=== PATIENT | male | born 1950 | race African-American/Black ===

== ENCOUNTER 2018-09-13 03:49 | Inpatient (IN) | payer OTHER ==
[~2018-09-13] VITALS: Ht 172.7 cm; Wt 99.1 kg
[2018-09-13] VITALS (14 sets, daily range): BP systolic 148–195; BP diastolic 64–93
[2018-09-13 04:22] LABS: CALCIUM 9.1 mg/dL (8.5-10.1); CREATININE 1.1 mg/dL (0.7-1.3); POTASSIUM 3.6 mmol/L (3.5-5.1)
[2018-09-13 04:26] LABS: ABSOLUTE NEUTROPHILS 2.7 thou/uL (1.4-8.2); BASOPHILS 0.9 % (0.0-2.0); EOSINOPHILS 2.7 % (0.0-3.0); HEMATOCRIT 32.7 % (42.0-52.0); HEMOGLOBIN 11.1 gm/dL (14.0-18.0); MCH 25.4 pg (26.0-34.0); MCHC 33.9 g/dL (28.0-37.0); MCV 74.9 fL (80.0-100.0); MONOCYTES 9.9 % (1.0-8.0); PLATELET COUNT 170 thou/uL (150-400); POLYS 55.5 % (36.0-66.0); RBC 4.36 mil/uL (4.50-6.00); RDW 15.5 % (10.5-14.5); WBC 4.9 thou/uL (4.0-11.0)
[2018-09-13 04:30] LABS: ALBUMIN 3.1 g/dL (3.4-5.0); TOTAL BILIRUBIN 0.5 mg/dL (<0.1-1.0); TOTAL PROTEIN 7.3 g/dL (6.4-8.2); TROPONIN-I 0.29 ng/mL (<0.06)
[2018-09-13 05:06] LABS: PROTIME 10.7 Seconds (9.3-11.4)
[2018-09-13] MEDS ORDERED: VICTOZA0.6 MG/0.1 SUBQ (05:24)
[2018-09-13] MEDS ORDERED: NORVASC10 MG PO (05:25)
[2018-09-13] MEDS ORDERED: COREG6.25 MG PO (05:25)
[2018-09-13] MEDS ORDERED: ATORVASTATIN CA40 MG PO (05:25)
[2018-09-13] MEDS ORDERED: BENTYL 20 MG TA20 M1 PO (05:26)
[2018-09-13] MEDS ORDERED: PEPCID20 MG PO (05:26)
[2018-09-13] MEDS ORDERED: COZAAR 25 MG TA25 M2 PO (05:27)
[2018-09-13] MEDS ORDERED: HYDRALAZINE 10M10 MG PO (05:27)
[2018-09-13] MEDS ORDERED: FLOMAX0.4 MG PO (05:28)
[2018-09-13] MEDS ORDERED: OMEPRAZOLE40 MG PO (05:28)
[2018-09-13] MEDS ORDERED: KLOR-CON 1010 MEQ PO (05:29)
[2018-09-13] MEDS ORDERED: NORTRIPTYLINE H25 M3 PO (05:30)
[2018-09-13] MEDS ORDERED: NEURONTIN 300300 M1 PO (05:31)
[2018-09-13 07:08] LABS: CHOLESTEROL 195 mg/dL (<200); HDL CHOLESTEROL 50 mg/dL (>40); LDL CHOLESTEROL 103 mg/dL (<100); TC:HDL 3.9 Ratio (Not establshd); TRIGLYCERIDE 214 mg/dL (<150); VLDL 43 mg/dL (<40)
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
[2018-09-13 11:24] LABS: TSH 2.847 uIU/mL (0.358-3.740)
--- NOTE | 2018-09-13 22:09 | EKG ---
[address] [address] ELECTROCARDIOGRAM REPORT Name: VILMA GELLER Room #: 212-P ADM IN M.R.#: [id number] Admission: 09/13/18 Attend Phys: Heriberto Lorenzo MD Discharge: Date of : 50 Report #: [id number] THIS REPORT FOR: //name// [facility] ED Test Date: 2018-09-13 Test Time: 03:57:50 Pat Name: VILMA GELLER Department: Room: 212 Gender: M Consultant: ariel : 1950 Requested By: Lilli Cruz Order Number: [id number] MD: Sumit Inman Measurements Intervals [place] Rate: 75 P: -49 WV: 210 QRS: -58 QRSD: 136 T: 132 QT: 428 QTc: 479 Interpretive Statements Sinus or ectopic atrial rhythm LVH with IVCD, LAD and secondary repol abnrm Anterior ST elevation, probably due to LVH No previous ECG available for comparison Electronically Signed On 09-13-2018 22:09:38 CHAMFERING MACHINE OPERATOR by Sumit Inman [email or web address] <ELECTRONICALLY SIGNED> By: Sumit Inman MD 09/13/18 1189 [id number] Sumit Inman MD /EPI
[2018-09-14 00:10] LABS: GLYCOHEMOGLOBIN (HGB A1C) 7.9 % (4.8-5.6)
[2018-09-14 00:23] VITALS: BP 162/72
[2018-09-14 04:18] LABS: HEMATOCRIT 31.3 % (42.0-52.0); HEMOGLOBIN 10.5 gm/dL (14.0-18.0); MCH 25.4 pg (26.0-34.0); MCHC 33.5 g/dL (28.0-37.0); MCV 75.9 fL (80.0-100.0); RBC 4.13 mil/uL (4.50-6.00); WBC 4.4 thou/uL (4.0-11.0)
[2018-09-14 05:08] VITALS: BP 172/75
[2018-09-14 05:08] LABS: CALCIUM 8.7 mg/dL (8.5-10.1); CREATININE 1.2 mg/dL (0.7-1.3); MAGNESIUM 1.8 mg/dL (1.8-2.4); POTASSIUM 3.6 mmol/L (3.5-5.1); TROPONIN-I 0.3 ng/mL (<0.06)
[2018-09-14 07:31] VITALS: BP 168/73
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
--- NOTE | 2018-09-14 08:52 | NUR ---
ASSESSMENT CHARTED. OFF BEDREST POST SAND BLASTER VISIT, NO INTERVENTIONS. SLEPT THROUGH MOST OF SHIFT. HAD HTN AT 0400 VITALS DOSED CHARTED. PLAN IS TO RETURN HOME TODAY.
--- NOTE | 2018-09-14 09:09 | CATHLAB ---
[facility] [address] [place] [address] INVASIVE PROCEDURE REPORT Name: VILMA GELLER Room #: 212-P ADM IN M.R.#: [id number] Admission: 09/13/18 Attend Phys: Jonathan Negrete, Discharge: Date of : 50 Date of Service: 09/14/18 0909 Report #: [id number] THIS REPORT FOR: //name// APPROVED REPORT Study performed: 09/13/2018 10:49:18 Patient Details Patient Status: In-Patient Room #: 212 The patient is a 67 year-old male Event Personnel Ruiz Mireles Life Science Teacher, Grace HenleyR, RECRUITMENT COORDINATOR Monitor, Timmy Renee RN RN, Taco Nash RT(R)(CV) Scrub Procedures Performed Art Access - R femoral artery* Left Heart Cath w/or w/o Coronaries [id number] [facility] [address] Initial Mod Sed Same Phys/QHP Gr5y 084459 Hemostasis with Manual pressure 38793 Mod Sed Same Phys/QHP Ea 500475 Indication Non-STEMI , Chest pain Risk Factors Hypercholesterolemia, Hypertension, Diabetes Procedure Narrative The Right Groin^ was infiltrated with 1% Lidocaine subcutaneous anesthesia. A PINNACLE 4FR Sheath #[id number] sheath was inserted into the RFA^. Coronary angiography was performed using coronary diagnostic catheters. The right coronary system was accessed and visualized with a JR4 catheter. The left coronary system was accessed and visualized with a JL4 catheter. The left ventricle was accessed and visualized with a ANGLED PIGTAIL catheter. Left ventricular/Aortic Valve gradient assessed via catheter pullback. Left ventriculogram was performed in 30 degree projection. Hemostasis was obtained with manual pressure following sheath removal without any complications. There was no hematoma. Intraoperative Conscious Sedation Sedation start time: 11:14 Case end Time: 11:51 Fentanyl 50 mcg Versed 1 mg [facility] [place] [address] INVASIVE PROCEDURE REPORT Name: VILMA GELLER Room #: 212-P [facility] IN M.R.#: [id number] Admission: 09/13/18 Attend Phys: Jonathan Negrete, Discharge: Date of : 50 Date of Service: 09/14/18 0909 Report #: [id number] Fluoro Time: 1.39 minutes Dose: DAP 3986.60 cGycm2 523 mGy Contrast Type and Amount: Omnipaque 95 ml Coronary Angiography The patient's coronary anatomy is co- dominant. Diagnostic Cath Left Main This is a patent vessel, with no flow-limiting lesions. LAD This is a moderate to large caliber vessel, traversing the anterior wall and wrapping around the apex. There is mild disease in the mid segment, 20%. Diagonal 1 This is a patent vessel, with no flow-limiting lesions. Diagonal 2 This is a patent vessel, with no flow-limiting lesions. Circumflex This is a codominant vessel, with no flow-limiting lesions. OM1 This is a moderate size caliber vessel, with no flow-limiting lesions. OM2 This is a moderate size caliber vessel, with no flow-limiting lesions. Right Coronary This is a codominant vessel, with no flow-limiting lesions. R PDA This is a patent vessel, with no flow-limiting lesions. Left Ventriculography The left ventricle is normal in size with normal contractility. The left ventricular ejection fraction is estimated to be 50-55%. Hemodynamics The aortic pressure is 182/87 mmHg with a mean of 81 mmHg. The left ventricular pressure is 175/16 mmHg with a mean of mmHg. The left ventricular end diastolic pressure is 29 mmHg. Conclusion 1. There is mild disease in the mid LAD. 2. This is a codominant system. [facility] [address] [place] [address] INVASIVE PROCEDURE REPORT Name: VILMA GELLER Room #: 212-P ADM IN M.R.#: [id number] Admission: 09/13/18 Attend Phys: Jonathan Negrete, Discharge: Date of : 50 Date of Service: 09/14/18 0909 Report #: [id number] 3. There is normal LV systolic function. 4. Recommend aggressive risk factor management. <ELECTRONICALLY SIGNED> By: Ruiz Mireles MD 09/14/18908 8 8 Ruiz Mireles MD /INF
[2018-09-14 11:06] VITALS: BP 167/78
[2018-09-14] MEDS ORDERED: CHLORTHALIDONE25 MG PO (11:52)
[2018-09-14 12:15] VITALS: BP 167/78
--- NOTE | 2018-09-14 12:30 | NUR ---
ASSESSMENTS COMPLETED AND DOCUMENTED. NO S/SX OF CARDIAC OR RESP DISTRESS. PT TELE AND IV REMOVED TO DC HOME. ALL BLONGINGS WITH PT, DISCHARGE INSTRUCTIONS GIVEN AND NEW RX. NO COMPLAINTS VOICED. WILL CONTINUE TO MONITOR.
--- NOTE | 2018-09-14 13:32 | NUR ---
patient to dc home he needs cab voucher. Vouched for cab for home.
== END 2018-09-14 13:40 | disposition home or self-care (01) | DRG 281 ==
LOC: ER 03:49 → EROBS 04:52 → 2N 04:52
PROVIDERS: Nurse Practitioner Acute Care; Student in an Organized Health Care Education/Training Program; ADMIT Internal Medicine
PROC: B2111ZZ Fluoroscopy of Multiple Coronary Arteries using Low Osmolar Contrast (ICD-10-PCS; principal; 2018-09-13)
PROC: 4A023N7 Measurement of Cardiac Sampling and Pressure, Left Heart, Percutaneous Approach (ICD-10-PCS; principal; 2018-09-13)
PROC: B2151ZZ Fluoroscopy of Left Heart using Low Osmolar Contrast (ICD-10-PCS; principal; 2018-09-13)
DX: I21.4 Non-ST elevation (NSTEMI) myocardial infarction (principal); I16.1 Hypertensive emergency; I10 Essential (primary) hypertension; E11.9 Type 2 diabetes mellitus without complications; H40.9 Unspecified glaucoma; E78.00 Pure hypercholesterolemia, unspecified; N40.0 Benign prostatic hyperplasia without lower urinary tract symptoms; E78.5 Hyperlipidemia, unspecified; Z79.899 Other long term (current) drug therapy; Z91.048 Other nonmedicinal substance allergy status; Z88.8 Allergy status to other drugs, medicaments and biological substances
CPT/HCPCS: 10081

== ENCOUNTER 2018-09-22 15:51 | Emergency (ER) | payer OTHER ==
[~2018-09-22] VITALS: Ht 172.7 cm; Wt 95.3 kg
[~2018-09-22 15:51] MED LIST: ATORVASTATIN CA40 MG PO; BENTYL 20 MG TA20 M1 PO; CHLORTHALIDONE25 MG PO; COREG6.25 MG PO; COZAAR 25 MG TA25 M2 PO; FLOMAX0.4 MG PO; HYDRALAZINE 10M10 MG PO; KLOR-CON 1010 MEQ PO; NEURONTIN 300300 M1 PO; NORTRIPTYLINE H25 M3 PO; NORVASC10 MG PO; OMEPRAZOLE40 MG PO; PEPCID20 MG PO; VICTOZA0.6 MG/0.1 SUBQ
[2018-09-22 16:16] LABS: RBC 4.55 mil/uL (4.50-6.00); RDW 15.9 % (10.5-14.5)
[2018-09-22 16:18] LABS: HEMOGLOBIN 11.6 gm/dL (14.0-18.0); MCH 25.5 pg (26.0-34.0); MCHC 34.1 g/dL (28.0-37.0); MCV 74.7 fL (80.0-100.0); PLATELET COUNT 111 thou/uL (150-400); WBC 8.5 thou/uL (4.0-11.0)
--- NOTE | 2018-09-22 16:19 | EKG ---
[facility] [place] [address] ELECTROCARDIOGRAM REPORT Name: VILMA GELLER Room #: PRE M.R.#: [id number] Admission: Attend Phys: Discharge: Date of : 50 Report #: [id number] THIS REPORT FOR: //name// [facility] ED Test Date: 2018-09-22 Test Time: 15:55:30 Pat Name: VILMA GELLER Department: Room: Gender: M Fish Flipper: ANGELINA : 1950 Requested By: Rosana Meyer Order Number: [id number] MD: Zach Shaw Measurements Intervals [place] Rate: 77 P: 30 UT: 218 QRS: -55 QRSD: 143 T: 116 QT: 433 QTc: 491 Interpretive Statements Sinus rhythm Borderline prolonged UT interval Probable left atrial enlargement LVH with IVCD, LAD and secondary repol abnrm Persistent anterior segment elevation Compared to ECG 09/13/2018 03:57:50 No significant change was found Electronically Signed On 09-22-2018 16:19:43 SNACK BAR COOK by Zach Shaw [email or web address] <ELECTRONICALLY SIGNED> By: Zach Shaw MD, [facility] 09/22/18 1619 1555 1555 Zach Shaw MD, FACC /EPI
[2018-09-22 16:27] LABS: CALCIUM 9.5 mg/dL (8.5-10.1); CREATININE 1.7 mg/dL (0.7-1.3); POTASSIUM 3.5 mmol/L (3.5-5.1)
[2018-09-22 16:35] LABS: ALBUMIN 3.5 g/dL (3.4-5.0); TOTAL BILIRUBIN 0.5 mg/dL (<0.1-1.0); TOTAL PROTEIN 7.7 g/dL (6.4-8.2); TROPONIN-I 0.21 ng/mL (<0.06)
[2018-09-22 16:56] LABS: ABSOLUTE NEUTROPHILS 4.2 thou/uL (1.4-8.2)
[2018-09-22 17:16] LABS: URINE CLARITY CLEAR; URINE COLOR YELLOW; URINE PROTEIN (DIPSTICK) 2+ (Negative); URINE SPECIFIC GRAVITY 1.025 (1.005-1.035)
[2018-09-22 17:17] LABS: URINE BILIRUBIN NEGATIVE (Negative); URINE BLOOD NEGATIVE (Negative); URINE GLUCOSE-RANDOM* TRACE (Negative); URINE KETONES NEGATIVE (Negative); URINE LEUKOCYTES-REFLEX NEGATIVE (Negative); URINE NITRITE-REFLEX NEGATIVE (Negative); URINE UROBILINOGEN 0.2 E.U./dl (0.2-1.0)
[2018-09-22 17:20] LABS: BACTERIA-REFLEX 1-9 Few /HPF (None Seen); CASTS None Seen /LPF (None Seen); CRYSTALS None Seen /LPF (None Seen); SQUAMOUS None Seen /LPF (0-3); URINE RBC None Seen /HPF (0-2); URINE WBC-REFLEX 0-5 Rare /HPF (0-5)
[2018-09-22 18:15] VITALS: BP 150/79
== END 2018-09-22 18:17 | disposition home or self-care (01) ==
LOC: ER 15:51
PROVIDERS: Nurse Practitioner Family
DX: E86.0 Dehydration (principal); R53.1 Weakness; I10 Essential (primary) hypertension; Z91.018 Allergy to other foods